=== PATIENT | female | born 1940 | race Caucasian/White ===

== ENCOUNTER → 2016-07-11 | Outpatient (CLI) | payer MEDICARE, BC ==
[~2016-07-11] MED LIST: BUDEPRION XL150 MG PO; BUPROPION XL150 MG PO; CENTRUM COMPLE1 EACH PO; CLEOCIN300 MG PO; COZAAR50 MG PO; Cozaar PO; ENDOCET 5-3251 EACH PO; Flintstones PO; KEFLEX500 MG PO; KENALOG,ARISTOC80 GM TP; KlonoPIN PO; LASIX20 MG PO; LEXAPRO10 MG PO; LEXAPRO20 MG PO; LIDOCAINE700 MG TD; LIDODERM 5% P1 PATCH PO; LIDODERM 5% P1 PATCH TD; MACROBID100 MG PO; MAXALT MLT10 MG PO; MAXALT MLT5 MG PO; MAXALT10 MG PO; OXYCODONE HCL15 MG PO; OXYCONTIN40 MG PO; PERCOCET 10/1 TABLET PO; PERCOCET 5/31 TABLET PO; REQUIP0.5 MG PO; ROXICODONE15 MG PO; SKELAXIN400 M1 PO; Skelaxin PO; TORADOL10 MG PO; ULTRAM50 MG PO; URELLE,DARPA1 TABLET PO; VITAMIN D2000 UNIT PO; WELLBUTRIN SR150 MG PO; [UNRECOGNIZED DRUG - OTHER]
== END | disposition home or self-care (01) ==
LOC: CDC 15:38
DX: Z01.810 Encounter for preprocedural cardiovascular examination (principal); R35.0 Frequency of micturition
CPT/HCPCS: 93000

== ENCOUNTER 2016-09-07 05:40 | Inpatient (IN) | payer BC, OTHER ==
[~2016-09-07] VITALS: Ht 162.6 cm; Wt 78.0 kg
[2016-09-07 07:35] LABS: EOSINOPHIL (%) 4.6 % (0-5); EOSINOPHIL COUNT 0.3 K/uL (0-0.3); HEMATOCRIT 40.9 % (36.0-46.0); IMMATURE GRANULOCYTE (%) 0.3 % (0.0-0.7); INSTRUMENT ABS NEUTROPHIL CT 3.4 K/uL; LYMPHOCYTE COUNT 1.6 K/uL (1.0-2.8); MCH 30.4 PG (29.0-34.0); MCHC 32.5 G/DL (30.0-36.0); MCV 93.4 FL (83-99); MEAN PLAT.VOLUME 11.4 uM^3 (9.5-12.4); MONOCYTE (%) 8.9 % (3-12); MONOCYTE COUNT 0.5 K/uL (0-0.8); NEUTROPHIL (%) 58.9 % (45-76); NEUTROPHIL COUNT 3.4 K/uL (1.8-6.4); PLATELET COUNT 223 K/uL (156-360); RBC DIS.WIDTH-CV 12.6 % (11.8-14.6); RBC DIS.WIDTH-SD 43.8 % (39-53); RED BLOOD COUNT 4.38 M/uL (3.80-5.20); WHITE BLOOD COUNT 5.9 K/uL (4.1-10.2)
[2016-09-07 08:05] LABS: ANION GAP 7 MEQ/L (2-14); CHLORIDE 103 MEQ/L (99-109); SAMPLE HEMOLYSIS CHECK 0; SAMPLE ICTERIC CHECK 0; SAMPLE LIPEMIA CHECK 0; SODIUM 142 MEQ/L (136-147)
[2016-09-07 08:10] LABS: GFR ESTIMATE (CALCULATED) > 59 mL/min/; GLUCOSE 107 mg/dL (70-99); UREA NITROGEN (BUN) 8 mg/dL (9-23)
[2016-09-07 08:12] LABS: TROP-I INTERPRETATION NEGATIVE; TROPONIN-I 0.01 ng/mL (0.0-0.30)
[2016-09-07 13:16] VITALS: BP 149/75
[2016-09-07 15:03] LABS: TROP-I INTERPRETATION NEGATIVE; TROPONIN-I < 0.01 ng/mL (0.0-0.30)
[2016-09-07 16:01] VITALS: BP 143/79
[2016-09-07] MEDS ORDERED: ULTRAM50 MG PO (17:07)
[2016-09-07] MEDS ORDERED: REQUIP0.5 MG PO (17:08)
[2016-09-07] MEDS ORDERED: LEXAPRO10 MG PO (17:10)
[2016-09-07] MEDS ORDERED: MAXALT MLT10 MG PO (17:12)
[2016-09-07] MEDS ORDERED: OXYCONTIN40 MG PO ×2 (17:15)
[2016-09-07] MEDS ORDERED: SENNA8.6 MG PO (17:19)
[2016-09-07 20:24] VITALS: BP 175/89
[2016-09-07 21:03] LABS: TROP-I INTERPRETATION NEGATIVE; TROPONIN-I < 0.01 ng/mL (0.0-0.30)
[2016-09-07 23:59] VITALS: BP 166/81
[2016-09-08 04:02] VITALS: BP 133/70
[2016-09-08 07:30] VITALS: BP 144/79
[2016-09-08 10:17] LABS: HEMATOCRIT 38.8 % (36.0-46.0); MCH 29.7 PG (29.0-34.0); MCHC 32.5 G/DL (30.0-36.0); MCV 91.5 FL (83-99); MEAN PLAT.VOLUME 11.8 uM^3 (9.5-12.4); PLATELET COUNT 221 K/uL (156-360); RED BLOOD COUNT 4.24 M/uL (3.80-5.20)
[2016-09-08 10:29] LABS: WHITE BLOOD COUNT 8.1 K/uL (4.1-10.2)
[2016-09-08 10:39] LABS: ANION GAP 9 MEQ/L (2-14); CHLORIDE 106 MEQ/L (99-109); GFR ESTIMATE (CALCULATED) > 59 mL/min/; GLUCOSE 170 mg/dL (70-99); POTASSIUM 3.9 MEQ/L (3.7-5.4); SAMPLE HEMOLYSIS CHECK 0; SAMPLE ICTERIC CHECK 0; SAMPLE LIPEMIA CHECK 0; SODIUM 141 MEQ/L (136-147); UREA NITROGEN (BUN) 8 mg/dL (9-23)
[2016-09-08 10:41] VITALS: BP 154/85
[2016-09-08 11:19] VITALS: BP 161/98
[2016-09-08 16:01] VITALS: BP 160/74
[2016-09-08 19:31] VITALS: BP 142/66
[2016-09-09 00:03] VITALS: BP 144/67
[2016-09-09 03:59] VITALS: BP 156/70
[2016-09-09 07:49] VITALS: BP 155/68
[2016-09-09 12:00] VITALS: BP 185/81
[2016-09-09 15:54] VITALS: BP 142/71
[2016-09-09 20:00] VITALS: BP 135/69
[2016-09-10] VITALS: BP 184/85
[2016-09-10 03:47] VITALS: BP 187/83
[2016-09-10 07:28] VITALS: BP 188/83
[2016-09-10 11:00] VITALS: BP 137/71
[2016-09-10] MEDS ORDERED: AMLODIPINE BESYL5 MG PO (12:48)
[2016-09-10] MEDS ORDERED: ANTIVERT25 MG PO (12:49)
[2016-09-10] MEDS ORDERED: PREDNISONE10 MG PO (12:52)
== END 2016-09-10 16:16 | disposition home or self-care (01) | DRG 149 ==
LOC: EME → EDBD 05:40 → 5SOUTH 09:57 → EDOF 09:57 → 5SOUTH 12:44
PROVIDERS: Emergency Medicine; Hospitalist; Internal Medicine
DX: H81.23 Vestibular neuronitis, bilateral (principal); R27.0 Ataxia, unspecified; E86.0 Dehydration; I10 Essential (primary) hypertension; G43.909 Migraine, unspecified, not intractable, without status migrainosus; G89.4 Chronic pain syndrome; Z88.2 Allergy status to sulfonamides; Z91.81 History of falling
CPT/HCPCS: 70450; 70544; 70549; 70551; 70553; 71010; 72125; 80048; 84484; 85025; 85027; 93005; 93306; 97530 GO; 99281; 99285; J1650; J1885; J2060; J2930; J7030; J7512

== ENCOUNTER 2016-12-23 06:01 | Emergency (ER) | payer OTHER, BC ==
[~2016-12-23] VITALS: Ht 165.1 cm; Wt 71.8 kg
[~2016-12-23 06:01] MED LIST changes: +AMLODIPINE BESYL5 MG PO; +ANTIVERT25 MG PO; +PREDNISONE10 MG PO; +SENNA8.6 MG PO
[2016-12-23 07:29] LABS: EOSINOPHIL (%) 3.4 % (0-5); EOSINOPHIL COUNT 0.2 K/uL (0-0.3); HEMATOCRIT 39.1 % (36.0-46.0); IMMATURE GRANULOCYTE (%) 0.1 % (0.0-0.7); INSTRUMENT ABS NEUTROPHIL CT 4.7 K/uL; LYMPHOCYTE COUNT 1.6 K/uL (1.0-2.8); MCH 28.9 PG (29.0-34.0); MCHC 32.5 G/DL (30.0-36.0); MCV 88.9 FL (83-99); MEAN PLAT.VOLUME 11.4 uM^3 (9.5-12.4); MONOCYTE (%) 7.6 % (3-12); MONOCYTE COUNT 0.5 K/uL (0-0.8); NEUTROPHIL (%) 66.6 % (45-76); NEUTROPHIL COUNT 4.7 K/uL (1.8-6.4); PLATELET COUNT 243 K/uL (156-360); RBC DIS.WIDTH-CV 13.1 % (11.8-14.6); WHITE BLOOD COUNT 7.1 K/uL (4.1-10.2)
[2016-12-23 07:59] LABS: ALKALINE PHOSPHATASE 139 IU/L (3-129); ANION GAP 8 MEQ/L (2-14); CHLORIDE 106 MEQ/L (99-109); GFR ESTIMATE (CALCULATED) > 59 mL/min/; GLUCOSE 98 mg/dL (70-99); LIPASE 14 U/L (1.0-51.0); POTASSIUM 4.1 MEQ/L (3.7-5.4); SAMPLE HEMOLYSIS CHECK 0; SAMPLE ICTERIC CHECK 0; SAMPLE LIPEMIA CHECK 0; SODIUM 143 MEQ/L (136-147); TOTAL BILIRUBIN 0.5 MG/DL (0.0-1.0); UREA NITROGEN (BUN) 7 mg/dL (9-23)
[2016-12-23 08:38] LABS: ADD MIUA? YES; BILIRUBIN NEGATIVE; BLOOD NEGATIVE; COLOR STRAW ((YELLOW)); GLUCOSE (STRIP) NEGATIVE; KETONES NEGATIVE; LEUKOCYTES MODERATE; NITRITE NEGATIVE; PROTEIN (STRIP) NEGATIVE; SPECIFIC GRAVITY 1.006 (1.000-1.030); UROBILINOGEN 0.2 MG/DL (0.2-1.0)
[2016-12-23 08:44] LABS: BACTERIA NONE SEEN /HPF; EPITHELIAL CELLS NONE SEEN /HPF; MUCUS NONE SEEN /LPF; RED BLOOD CELLS 0-5 /HPF (0-5); UCUL ADDED? YES
[2016-12-23] MEDS ORDERED: OXYCONTIN40 MG PO (10:18)
[2016-12-23 10:23] VITALS: BP 151/65
== END 2016-12-23 10:27 | disposition home or self-care (01) ==
LOC: EME 06:01
PROVIDERS: Emergency Medicine
DX: N39.0 Urinary tract infection, site not specified (principal); K62.3 Rectal prolapse; I34.1 Nonrheumatic mitral (valve) prolapse; G25.81 Restless legs syndrome; F41.9 Anxiety disorder, unspecified; F32.9 Major depressive disorder, single episode, unspecified; E78.5 Hyperlipidemia, unspecified; Z98.890 Other specified postprocedural states
CPT/HCPCS: 74177; 80053; 81003; 83690; 85025; 87086; 99281; 99285; J2270; J2405; J3010; J7030

== ENCOUNTER → 2017-02-09 | Outpatient (CLI) | payer OTHER, BC ==
[~2017-02-09] MED LIST changes: +POTASSIUM CITR10 MEQ PO
== END | disposition home or self-care (01) ==
LOC: AMB 12:00
PROC: 0DJD8ZZ Inspection of Lower Intestinal Tract, Via Natural or Artificial Opening Endoscopic (ICD-10-PCS; principal; 2017-02-09)
DX: K62.3 Rectal prolapse (principal); K62.5 Hemorrhage of anus and rectum; K59.00 Constipation, unspecified; E77.8 Other disorders of glycoprotein metabolism; M79.7 Fibromyalgia; Z88.2 Allergy status to sulfonamides; E66.09 Other obesity due to excess calories; Z68.27 Body mass index [BMI] 27.0-27.9, adult

== ENCOUNTER 2017-10-25 02:32 | Emergency (ER) | payer OTHER, BC ==
[~2017-10-25] VITALS: Ht 162.6 cm; Wt 70.7 kg
[2017-10-25 03:35] LABS: APPEARANCE CLEAR ((CLEAR)); BILIRUBIN NEGATIVE; BLOOD NEGATIVE; COLOR STRAW ((YELLOW)); GLUCOSE (STRIP) NEGATIVE; KETONES NEGATIVE; LEUKOCYTES SMALL; NITRITE NEGATIVE; PROTEIN (STRIP) NEGATIVE; SPECIFIC GRAVITY 1.006 (1.000-1.030); UROBILINOGEN 0.2 MG/DL (0.2-1.0)
[2017-10-25 03:41] LABS: BACTERIA RARE /HPF; EPITHELIAL CELLS NONE SEEN /HPF; MUCUS NONE SEEN /LPF; RED BLOOD CELLS 0-5 /HPF (0-5); UCUL ADDED? NO; WHITE BLOOD CELLS 0-5 /HPF (0-5)
[2017-10-25] MEDS ORDERED: MEDROL DOSEPAK4 MG PO (05:12)
[2017-10-25 06:47] VITALS: BP 150/88
== END 2017-10-25 06:50 | disposition home or self-care (01) ==
LOC: EME → EDBD 02:32 → EME 06:50
PROVIDERS: Emergency Medicine
DX: G89.29 Other chronic pain (principal); M54.5 Low back pain; Z88.2 Allergy status to sulfonamides
CPT/HCPCS: 81003; 99281; 99285; J1885; J7050

== ENCOUNTER 2017-10-25 15:30 | Emergency (ER) | payer OTHER, BC ==
[~2017-10-25] VITALS: Ht 162.6 cm; Wt 69.4 kg
[~2017-10-25 15:30] MED LIST changes: +MEDROL DOSEPAK4 MG PO
[2017-10-25 16:56] LABS: APPEARANCE CLEAR ((CLEAR)); BILIRUBIN NEGATIVE; BLOOD NEGATIVE; COLOR STRAW ((YELLOW)); GLUCOSE (STRIP) NEGATIVE; KETONES NEGATIVE; LEUKOCYTES NEGATIVE; NITRITE NEGATIVE; PROTEIN (STRIP) NEGATIVE; UROBILINOGEN 0.2 MG/DL (0.2-1.0)
[2017-10-25 18:33] VITALS: BP 183/76
== END 2017-10-25 18:34 | disposition home or self-care (01) ==
LOC: EME 15:30
PROVIDERS: Nurse Practitioner Family
DX: G89.29 Other chronic pain (principal); M54.9 Dorsalgia, unspecified; M79.604 Pain in right leg; M79.605 Pain in left leg; F11.23 Opioid dependence with withdrawal; R51 Headache; R61 Generalized hyperhidrosis; Z98.818 Other dental procedure status; Z88.2 Allergy status to sulfonamides; H53.149 Visual discomfort, unspecified; R11.0 Nausea
CPT/HCPCS: 81003; 99281; 99285; J3010

== ENCOUNTER 2017-12-21 03:51 | Emergency (ER) | payer OTHER, BC ==
[~2017-12-21] VITALS: Ht 162.6 cm; Wt 74.4 kg
[2017-12-21 05:45] VITALS: BP 174/76
== END 2017-12-21 05:47 | disposition home or self-care (01) ==
LOC: EME → EDBD 03:51 → EME 03:51
DX: M54.5 Low back pain (principal); G89.29 Other chronic pain; Z88.2 Allergy status to sulfonamides
CPT/HCPCS: 99281; 99284; J3010